=== PATIENT | female | born 1940 | race Caucasian/White ===

== ENCOUNTER 2025-08-14 10:42 | Outpatient (CLI) | payer OTHER | END 2025-08-14 10:43 | disposition home or self-care (01) | LOC: CSHRAD 10:42 | PROVIDERS: ATTEND Family Medicine | DX: Z01.818 Encounter for other preprocedural examination (principal); Z95.0 Presence of cardiac pacemaker; R56.9 Unspecified convulsions | CPT/HCPCS: 71046 ==